=== PATIENT | female | born 1940 | race Hispanic/Latino ===

== ENCOUNTER 2025-02-26 22:31 | Emergency (ER) | payer MEDICARE ==
[~2025-02-26] VITALS: Ht 157.5 cm; Wt 54.9 kg
--- NOTE | 2025-02-26 23:15 | ERN ---
General Chief Complaint: Mechanical Fall Stated Complaint: FALL Time Seen by MD: 22:36 Source: patient History of Present Illness Initial Comments Patient is an 84-year-old female who is undergoing physical therapy because of difficulty walking without losing her balance. The over the last day or two she has felt lightheaded and today while getting out of a car she fell backwards hitting left elbow left side of her head and left neck. She had no loss of consciousness and was ambulatory at the scene. This occurred approximately 4 hours ago. Aside from the pain in her left elbow and left head she is asymptomatic and has no headache no neurological symptoms. Allergies: Coded Allergies: No Known Allergies (Unverified Allergy, Unknown, 02/26/25) Past Medical History Past Medical History: Diabetes-Type II Medical History Other: History of falling Past Surgical History: Hysterectomy Surgical History Other: POOR HISTORIAN Constitutional: (-) chills, (-) diaphoresis, (-) fever, (-) malaise, (-) weakness, (-) other documentation EENTM: (-) eye pain, (-) blurred vision, (-) tearing, (-) double vision, (-) ear pain, (-) ear discharge, (-) nose pain, (-) nose congestion, (-) throat pain, (-) Throat swelling, (-) mouth pain, (-) tooth pain, (-) mouth swelling, (-) other documentation Respiratory: (-) cough, (-) orthopnea, (-) short of breath, (-) stridor, (-) wheezing, (-) other documentation Cardiovascular: (-) chest pain, (-) edema, (-) palpitations, (-) syncope, (-) dyspnea on exertion, (-) other documentation Gastrointestinal/Abdominal: (-) nausea, (-) vomiting, (-) diarrhea, (-) abdominal pain, (-) abdominal distention, (-) constipation, (-) rectal bleeding, (-) dark stool/melena, (-) other documentation Musculoskeletal: (+) Neck pain Skin: (+) abrasion Physical Exam General Appearance: (+) mild distress Orientation: (+) alert, (+) oriented x 3 Head/Face Trauma: Yes (Patient has a contusion on her left frontaltemporal region) Eye: bilateral eye normal inspection, bilateral eye PERRL, bilateral eye EOMI Ear, Nose, Throat: (+) hearing grossly normal, (+) normal ENT inspection, (+) moist mucous membraine, (+) normal pharynx Neck: (+) normal inspection, (+) supple, (+) full range of motion, (+) non- tender Respiratory: (+) chest non-tender, (+) lungs clear, (+) well ventilated Heart: (+) regular, (+) no gallop Vascular: (+) no edema, (+) normal peripheral pulse MDM I will get a CT scan of the patient's head and neck. CT of the patient's head is negative for intracerebral hemorrhage or contusions. There is a soft tissue swelling on the left frontotemporal area. Patient's CT of the neck does not show any fractures or subluxations. There are a large number of arthritic changes especially between C4 and C5. I removed the C-collar from the patient's neck she could flex and extend her neck with no pain. No numbness tingling in her fingers hands or lower extremities. She could rotate her head to the left and right with no pain. ED Course Orders Procedure Category Date Status Time Ct Head/Brain W/O CT 02/26/25 Taken Contrast 22:47 Ct Cervical Spine W/O CT 02/26/25 Taken Contrast 22:47 Vital Signs Date Time Temp Pulse Resp B/P (MAP) Pulse Ox O2 Delivery O2 Flow Rate FiO2 02/26/25 22:32 100.2 94 16 157/85 96 Room Air DX & DISP Disposition: Discharge Departure Impression: Primary Impression: Ground-level fall Condition: Stable Additional Instructions: You fell onto the left side of your body with minimal skin damage to your left elbow. Our CT scans show no damage to your neck and no damage to your head beyond the bruise. If you have headaches nausea vomiting increasing loss of balance in the next day or two please return to the emergency room. These may represent symptoms of a concussion and you would need to be evaluated. Please follow-up with your primary care doctor in a week or two to be sure you have recovered completely from this fall. YAMILA SORIANO MD Feb 26, 2025 23:15
[2025-02-27 00:02] VITALS: BP 140/66; PULSE 88; RESP 18; TEMP 98.8; O2SAT 98
--- NOTE | 2025-02-27 00:40 | HMCIMG ---
EXAM: CT Head without IV contrast. CLINICAL HISTORY: Ground-level fall. TECHNIQUE: Axial computed tomography images of the head/brain without intravenous contrast. COMPARISON: None provided. FINDINGS: BRAIN: No evidence of acute hemorrhage. No mass lesion. No midline shift or extra-axial collections. Mild age-related. 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 VENTRICLES: No hydrocephalus. ORBITS: Unremarkable. SINUSES AND MASTOIDS: The paranasal sinuses and mastoid air cells are clear. BONES: No acute calvarial fracture. SOFT TISSUES: There is a small left frontoparietal scalp swelling. IMPRESSION: No acute intracranial abnormality. Small left frontoparietal scalp swelling. Mild age-related with chronic small vessel ischemia. /[place]
--- NOTE | 2025-02-27 00:44 | HMCIMG ---
EXAM: CT Cervical Spine without IV contrast. CLINICAL HISTORY: Ground-level fall. TECHNIQUE: Axial computed tomography images of the cervical spine without intravenous contrast. Sagittal and coronal reformatted images were generated. CONTRAST: None. COMPARISON: None. FINDINGS: No fracture or traumatic subluxation is seen. There is minimal degenerative retrolisthesis of C4 over C5. There are diffuse disc bulges at C4-5, C5-6, and C6-7 levels. In addition, there are prominent bilateral disc osteophyte complexes at the C4-5 level, causing mild spinal canal, moderate left, and mild to moderate right neural foraminal narrowing. There is a right facet joint arthropathy at the C5-6 level. There is left facet joint arthropathy at the C7-T1 level. Prevertebral soft tissues are unremarkable for trauma. The thyroid gland is diminutive, demonstrating a 2 mm calcification in the right lobe. Limited views of the lung apices are unremarkable. IMPRESSION: No fracture or traumatic subluxation. Multilevel cervical spondylosis. /[place]
== END 2025-02-27 00:06 | disposition home or self-care (01) ==
LOC: EDH 22:31
DX: S00.83XA Contusion of other part of head, initial encounter (principal); E11.9 Type 2 diabetes mellitus without complications; Z90.710 Acquired absence of both cervix and uterus; W18.39XA Other fall on same level, initial encounter; Y93.01 Activity, walking, marching and hiking; Y92.89 Other specified places as the place of occurrence of the external cause; Y99.8 Other external cause status
CPT/HCPCS: 70450; 72125; 99284